=== PATIENT | female | born 1985 | race Caucasian/White ===

== ENCOUNTER 2024-09-09 04:54 | Emergency (ER) | payer OTHER ==
[~2024-09-09] VITALS: Ht 160 cm; Wt 113.4 kg
[2024-09-09 05:34] VITALS: BP 136/70; TEMP 97.7; O2SAT 100
[2024-09-09] MEDS ORDERED: AMOX500C2 PO (06:10)
[2024-09-09] MEDS ORDERED: IBUP-1955 PO (06:10)
[2024-09-09] MEDS ORDERED: AMOXICILLIN TRIHYDRATE 250 MG CAPSULE ONE (06:15)
[2024-09-09] MEDS ORDERED: IBUPROFEN 600 MG TABLET ONE (06:16)
[2024-09-09] MEDS: IBUPROFEN 600 MG TABLET PO ONE (06:21)
[2024-09-09] MEDS: AMOXICILLIN TRIHYDRATE 500 MG CAPSULE PO ONE (06:21)
== END 2024-09-09 06:22 | disposition home or self-care (01) ==
LOC: ER 04:56
DX: K08.89 Other specified disorders of teeth and supporting structures (principal); Z86.711 Personal history of pulmonary embolism